=== PATIENT | male | born 1955 | race Caucasian/White ===

== ENCOUNTER 2024-04-25 07:47 | Day surgery (SDC) | payer MEDICARE ==
[~2024-04-25 07:47] MED LIST: Sodium Chloride 0.9% 10 ML Syringe FLUSH PRN; Sodium Chloride 0.9% 10 ML Syringe FLUSH SCH
[2024-04-25] MEDS: Lactated Ringers 1,000 ML IV SCH (08:05)
[2024-04-25] MEDS ORDERED: Midazolam 1 MG/ML 2 ML SDV ONE ×2 (08:26→10:37)
[2024-04-25] MEDS ORDERED: Propofol 200 MG/20 ML SDV ONE ×5 (08:26→10:23)
[2024-04-25] MEDS: Acetaminophen 325 MG Tab PO SCH (08:32)
[2024-04-25] MEDS: oxyCODONE ER 10 MG TAB.ER PO SCH (08:32)
[2024-04-25] MEDS: Pregabalin 25 MG Cap PO SCH (08:32)
[2024-04-25] MEDS ORDERED: ceFAZolin 2 GM Vial ONE (09:45)
[2024-04-25] MEDS ORDERED: ePHEDrine 50 MG/ML SDV ONE (10:08)
[2024-04-25] MEDS ORDERED: Ondansetron 4 MG/2 ML SDV IVPUSH PRN (10:09)
[2024-04-25] MEDS ORDERED: HYDROmorphone 0.5 MG/0.5 ML Syringe IVPUSH PRN (10:09)
[2024-04-25] MEDS: Morphine 8 MG, EPINEPHrine 0.3 MG, Cefuroxime 750 MG, Ketorolac 30 MG, Sodium Chloride ... PRN (10:43)
[2024-04-25] MEDS: Tranexamic Acid 1,000 MG/10 ML Vial ONE (10:44)
[2024-04-25] MEDS: Vancomycin 1 GM SDV ONE (10:44)
[2024-04-25] MEDS: fentaNYL 100 MCG/2 ML SDV IVPUSH PRN (11:31)
[2024-04-25] MEDS: oxyCODONE 5 MG Tab PO PRN (12:13)
== END 2024-04-25 15:40 | disposition home or self-care (01) ==
LOC: JD.SDS 07:47
PROVIDERS: ATTEND Orthopaedic Surgery
DX: M16.12 Unilateral primary osteoarthritis, left hip (principal); I10 Essential (primary) hypertension; E11.9 Type 2 diabetes mellitus without complications; E78.00 Pure hypercholesterolemia, unspecified; Z87.891 Personal history of nicotine dependence; Z79.82 Long term (current) use of aspirin; Z79.84 Long term (current) use of oral hypoglycemic drugs; Z79.899 Other long term (current) drug therapy
CPT/HCPCS: 0055T; 27130; 36415; 73501; 86850; 86900; 86901; 97110; 97161; A9270; C1713; C1776; J0171; J0690; J0697; J1885; J2250; J2270; J2704; J3010; J3370; J7120; 01214; J3490

== ENCOUNTER 2024-05-15 04:27 | Emergency (ER) | payer MEDICARE ==
[2024-05-15 05:09] LABS: APPEARANCE,URINE CLOUDY (Clear); BILIRUBIN,URINE NEGATIVE (Negative); COLOR,URINE YELLOW (Yellow); GLUCOSE,URINE 1+ (Negative); KETONES,URINE 1+ (Negative); LEUKOCYTE ESTERASE,URINE 1+ (Negative); NITRITE,URINE NEGATIVE (Negative); OCCULT BLOOD,URINE 1+ (Negative); PH,URINE 5.5 (5.0-8.0); PROTEIN,URINE 2+ (Negative)
[2024-05-15 05:28] LABS: RBC,URINE 0-5 /hpf (0-5); WBC CLUMPS,URINE FEW /hpf (NOT SEEN); WBC,URINE >100 /hpf (0-5)
[2024-05-15 05:29] LABS: BACTERIA,URINE MANY /hpf (FEW); EPITHELIAL CELLS,URINE NOT SEEN /hpf (0-5); MUCUS,URINE FEW /hpf (FEW)
[2024-05-15] MEDS: Lidocaine 1% 10 ML MDV ONE (05:33)
[2024-05-15] MEDS: cefTRIAXone 1 GM Vial IM ONE (05:33)
[2024-05-15] MEDS: Phenazopyridine 95 MG Tab PO ONE (05:33)
[2024-05-15] MEDS: Lidocaine 1% 50 ML MDV INJECT ONE (05:33)
== END 2024-05-15 05:42 | disposition home or self-care (01) ==
LOC: JD.ED 04:27
DX: N30.00 Acute cystitis without hematuria (principal); E78.00 Pure hypercholesterolemia, unspecified; I10 Essential (primary) hypertension; Z86.16 Personal history of COVID-19; Z79.899 Other long term (current) drug therapy; Z88.8 Allergy status to other drugs, medicaments and biological substances; Z88.3 Allergy status to other anti-infective agents
CPT/HCPCS: 81001; 87086; 96372; 99283; A9270; J0696; J2001; 87088; 87186

== ENCOUNTER 2024-06-12 08:55 | Emergency (ER) | payer MEDICARE ==
[2024-06-12] MEDS: Sodium Chloride 0.9% 10 ML Syringe FLUSH PRN (10:15)
[2024-06-12 10:23] LABS: APPEARANCE,URINE TURBID (Clear); BASOPHILS ABSOLUTE AUTO 0.1 K/mm3 (0.0-0.2); BASOPHILS PERCENT AUTO 0.5 % (0.0-1.0); BILIRUBIN,URINE 3+ (Negative); COLOR,URINE RED (Yellow); EOSINOPHILS ABSOLUTE AUTO 0.1 K/mm3 (0.0-0.4); GLUCOSE,URINE TRACE (Negative); HEMATOCRIT 41.6 % (42.0-52.0); HEMOGLOBIN 13.7 gm/dl (14.0-18.0); IMMATURE GRAN ABSOLUTE AUTO 0.05 K/mm3 (0.00-0.05); IMMATURE GRAN PERCENT AUTO 0.4 % (0.0-0.4); KETONES,URINE 1+ (Negative); LEUKOCYTE ESTERASE,URINE 3+ (Negative); LYMPHOCYTES ABSOLUTE AUTO 2.4 K/mm3 (1.0-4.8); LYMPHOCYTES PERCENT AUTO 19.9 % (24.0-44.0); MEAN CORPUSCULAR HGB CONC 32.9 g/dl (32.0-36.0); MEAN CORPUSCULAR VOLUME 88.1 fl (83.0-99.0); MEAN PLATELET VOLUME 9.8 fl (9.4-12.4); MONOCYTES ABSOLUTE AUTO 0.9 K/mm3 (0.0-0.8); MONOCYTES PERCENT AUTO 7.5 % (0.0-8.0); NEUTROPHILS ABSOLUTE AUTO 8.4 K/mm3 (1.8-7.7); NEUTROPHILS PERCENT AUTO 70.7 % (41.0-71.0); NITRITE,URINE POSITIVE (Negative); OCCULT BLOOD,URINE 3+ (Negative); PLATELET COUNT,PLT 212 K/mm3 (150-400); PROTEIN,URINE 3+ (Negative); RED BLOOD CELL COUNT 4.72 M/mm3 (4.52-5.90); WHITE BLOOD CELL COUNT,WBC 11.94 K/mm3 (3.9-11.3)
[2024-06-12] MEDS: Sodium Chloride 0.9% 1,000 ML IV ONE (10:30)
[2024-06-12 10:42] LABS: BACTERIA,URINE MANY /hpf (FEW); MUCUS,URINE MODERATE /hpf (FEW); RBC,URINE TOO NUMEROUS TO CNT /hpf (0-5); SQUAMOUS EPITHELIAL CELLS,UR 0-5 /hpf (0-5); WBC,URINE >100 /hpf (0-5)
[2024-06-12 10:50] LABS: A/G RATIO 1.1 (1-2); ANION GAP 13.3 (5-15); BILIRUBIN TOTAL 0.6 mg/dL (0.2-1.0); BUN/CREATININE RATIO 14.3 (14-18); CALCIUM 9.6 mg/dL (8.5-10.1); CREATININE 1.4 mg/dL (0.7-1.3); EST CRCL DRUG DOSING (CG) 52.87 mL/min; POTASSIUM,K 4.3 mEq/L (3.5-5.1); PROTEIN TOTAL,TP 7.5 g/dl (6.4-8.2)
[2024-06-12] MEDS: Iopamidol 612 MG/ML 100 ML Bottle IVPUSH ONE (11:28)
[2024-06-12] MEDS: cefTRIAXone 1 GM in Sodium Chloride 0.9% 100 ML IV ONE (14:11)
== END 2024-06-12 14:48 | disposition home or self-care (01) ==
LOC: JD.ED 08:55
DX: R31.9 Hematuria, unspecified (principal); R35.0 Frequency of micturition; R30.0 Dysuria; R82.90 Unspecified abnormal findings in urine; E78.00 Pure hypercholesterolemia, unspecified; I10 Essential (primary) hypertension; Z86.16 Personal history of COVID-19; Z79.82 Long term (current) use of aspirin; Z88.8 Allergy status to other drugs, medicaments and biological substances; Z79.899 Other long term (current) drug therapy
CPT/HCPCS: 36415; 74177; 80053; 81001; 85025; 87086; 96361; 96365; 99284; J0696; J3490; J7030; Q9967; 87088; 87186